=== PATIENT | male | born 1970 | race Caucasian/White ===

== ENCOUNTER 2016-08-31 16:57 | Emergency (ER) | payer SELFPAY ==
[~2016-08-31] VITALS: Ht 165.1 cm; Wt 72.0 kg
[~2016-08-31 16:57] MED LIST: HYDR-3533 PO; VENTAER INH
[2016-08-31 17:03] VITALS: BP 141/91; PULSE 60; RESP 16; TEMP 98; O2SAT 98
--- NOTE | 2016-08-31 17:38 | PD ---
HPI Chief Complaint: Injury Time Seen by Provider: 17:38 Travel History International Travel<30 days: No Contact w/Intl Traveler<30days: No Traveled to known affect area: No History of Present Illness HPI 46-year-old male with history of left wrist fracture in April 2016, presents to the emergency department for evaluation of reinjuring the left wrist. Patient states he can fell landing on a low outstretched left upper extremity. He experienced immediate pain but noticed it beginning to swell. He went to Dr. Ward'S office but was told he would not be able to see him today. He came to the emergency department for further evaluation. He did not hit his head or lose consciousness. Denies any alterations in sensation. Pain is a constant 8 out of 10, exacerbated by movement. No other symptoms to report. PFSH Past Medical History Arthritis: Yes Asthma: Yes Anxiety: Yes Cancer: No Cardiovascular Problems: No High Cholesterol: Yes Diminished Hearing: No Gastrointestinal Disorders: Yes GERD: Yes Genitourinary: Yes Headaches: Yes Hypertension: Yes Immune Disorder: No Implanted Vascular Access Dvce: Yes Kidney Stones: Yes Musculoskeletal: Yes Neurologic: Yes Psychiatric: Yes Respiratory: Yes (ASTHMA) Immunizations Current: Yes Thyroid Disease: Yes Past Surgical History Abdominal Surgery: No Appendectomy: Yes Body Medical Devices: PINS Joint Replacement: Yes (RIGHT HIP) Tonsillectomy: Yes Social History Alcohol Use: No Tobacco Use: Yes (1PACK EVERY 3 DAYS) Substance Use: No Allergies-Medications (Allergen,Severity, Reaction): Coded Allergies: Codeine (Verified Allergy, Severe, HIVES, N/V, 08/31/16) Darvocet-N 100 (Verified Allergy, Severe, HIVES WITH N&V, 08/31/16) Penicillin (Verified Allergy, Severe, ANAPHALAXIS, 08/31/16) Reported Meds & Prescriptions Reported Meds & Active Scripts Active Reported Lortab (Hydrocodone-Acetaminophen) 5-325 Mg Tab 1 Tab PO Q6H PRN Ventolin Hfa 18 GM Inh (Albuterol Sulfate) 90 Mcg/Act Aer 2 Puff INH Q4H PRN Review of Systems Except as stated in HPI: all other systems reviewed are Neg Physical Exam Narrative GENERAL: Well-nourished, well-developed patient, ambulatory and in no acute distress SKIN: Warm and dry. HEAD: Normocephalic. EYES: No scleral icterus. No injection or drainage. NECK: Supple, trachea midline. No JVD or lymphadenopathy. CARDIOVASCULAR: Regular rate and rhythm without murmurs, gallops, or rubs. RESPIRATORY: Breath sounds equal bilaterally. No accessory muscle use. EXTREMITY: There is swelling and tenderness of the left distal forearm and wrist. There is NO obvious deformity. The skin is intact. Flexion and extension of the fingers is normal. The fingers are warm and well perfused. Sensation to light touch is intact in the hand. Data Data Last Documented VS Vital Signs Date Time Temp Pulse Resp B/P Pulse Ox O2 Delivery O2 Flow Rate FiO2 08/31/16 17:03 98.0 60 16 141/91 98 Room Air Orders Wrist, Complete ([id number]) (08/31/16 ) [facility] Medical Decision Making Medical Screen Exam Complete: Yes Emergency Medical Condition: Yes Medical Record Reviewed: Yes Differential Diagnosis Fracture versus sprain versus contusion versus dislocation Narrative Course 46-year-old male presents to the emergency department for evaluation left wrist injury. X-ray imaging is complete. As stated for acute bony abnormality. Patient will be provided a Velcro wrist splint. Advised to follow-up with his industrial relations specialist. He agrees to return immediately with any acute worsening of symptoms. Diagnosis Primary Impression: Left wrist injury Qualified Code: S69.92XA - Left wrist injury, initial encounter Referrals: Orthopaedic Surgeon Primary Care Physician Patient Instructions: General Instructions, Wrist Injury (DC) Additional Instructions: Brace for support Ice and elevate to reduce pain and swelling Follow-up the primary care provider Return immediately to the emergency department with any acute worsening of symptoms. Med/Other Pt SpecificInfo: Prescription(s) given Scripts Ibuprofen 600 Mg [id number] Mg PO Q8HR PRN (PAIN) #30 TAB Ref 0 Prov:Leticia Herzog 08/31/16 Disposition: 01 DISCHARGE HOME Condition: Stable Leticia Herzog Aug 31, 2016 17:38
--- NOTE | 2016-08-31 18:07 | RADRPT ---
EXAM DATE/TIME: 08/31/2016 17:36 [facility] COMPARISON: No previous studies available for comparison. INDICATIONS : Left wrist pain after fall. MEDICAL HISTORY : Previous injury in left wrist April 2016. SURGICAL HISTORY : None. ENCOUNTER: Initial ACUITY: 2 days PAIN SCORE: 10/10 LOCATION: Left lateral wrist. FINDINGS: Three view examination of the left wrist demonstrates no soft tissue swelling, dislocation, or fractu re. The carpal bones are in normal alignment. The joint spaces are maintained. Bony mineralization is normal. CONCLUSION: Intact left wrist. Tony Mercer MD on August 31, 2016 at 18:04 Board Certified Radiologist. This report was verified electronically.
[2016-08-31] MEDS ORDERED: IBUP-232 PO (18:12)
== END 2016-08-31 18:20 | disposition home or self-care (01) ==
LOC: NEPB 16:57
DX: S69.92XA Unspecified injury of left wrist, hand and finger(s), initial encounter (principal); I10 Essential (primary) hypertension; E07.9 Disorder of thyroid, unspecified; E78.00 Pure hypercholesterolemia, unspecified; Z72.0 Tobacco use; Z87.39 Personal history of other diseases of the musculoskeletal system and connective tissue; Z87.09 Personal history of other diseases of the respiratory system; Z86.59 Personal history of other mental and behavioral disorders; Z87.19 Personal history of other diseases of the digestive system; Z87.448 Personal history of other diseases of urinary system; Z86.69 Personal history of other diseases of the nervous system and sense organs; W19.XXXA Unspecified fall, initial encounter
CPT/HCPCS: 73110; 99283; L3908

== ENCOUNTER 2017-02-15 01:34 | Emergency (ER) | payer SELFPAY ==
[~2017-02-15] VITALS: Ht 162.6 cm; Wt 62.0 kg
[~2017-02-15 01:34] MED LIST changes: +IBUP-232 PO
[2017-02-15 01:35] VITALS: BP 190/102; PULSE 84; RESP 16; TEMP 97.9; O2SAT 99
[2017-02-15 01:53] VITALS: BP 170/95
[2017-02-15] MEDS ORDERED: KETOROLAC TROMETHAMINE 60 MG/2 ML (IM) VIAL IM ONE (02:30)
--- NOTE | 2017-02-15 02:32 | PD ---
HPI Chief Complaint: Injury Time Seen by Provider: 02:25 Travel History International Travel<30 days: No Contact w/Intl Traveler<30days: No Traveled to known affect area: No History of Present Illness HPI 46-year-old male here with left forearm pain. At 7 PM this evening he was helping a friend while the friend was trimming a palm tree. A piece of the palm tree branch fell and hit him on the left forearm. He now has forearm pain and bruising. He did have a small puncture wound which initially was bleeding but resolved. He does not believe that any of the thorns broke off underneath the skin. Last tetanus vaccination within 5 years. No other complaints. PFSH Past Medical History Arthritis: Yes Asthma: Yes Anxiety: Yes Cancer: No Cardiovascular Problems: No High Cholesterol: Yes Diminished Hearing: No Gastrointestinal Disorders: Yes GERD: Yes Genitourinary: Yes Headaches: Yes Hypertension: Yes Immune Disorder: No Implanted Vascular Access Dvce: Yes Kidney Stones: Yes Musculoskeletal: Yes Neurologic: Yes Psychiatric: Yes Respiratory: Yes (ASTHMA) Immunizations Current: Yes Thyroid Disease: Yes ?: Not Past Surgical History Abdominal Surgery: No Appendectomy: Yes Body Medical Devices: PINS Joint Replacement: Yes (RIGHT HIP) Tonsillectomy: Yes Family History Family Myocardial Infarction: Yes Social History Alcohol Use: No Tobacco Use: Yes (1PACK EVERY 3 DAYS) Substance Use: No Allergies-Medications (Allergen,Severity, Reaction): Coded Allergies: acetaminophen (Unverified Allergy, Severe, HIVES WITH N&V, 02/07/17) codeine (Unverified Allergy, Severe, HIVES, N/V, 02/07/17) penicillin G (Unverified Allergy, Severe, ANAPHALAXIS, 02/07/17) propoxyphene (Unverified Allergy, Severe, HIVES WITH N&V, 02/07/17) Reported Meds & Prescriptions Reported Meds & Active Scripts Active Ibuprofen 800 Mg Tab 800 Mg PO Q6HR PRN Doxycycline Hyclate 100 Mg Cap 100 Mg PO BID 5 Days Review of Systems Except as stated in HPI: all other systems reviewed are Neg Physical Exam Narrative GENERAL: Well-developed well-nourished male in no acute distress SKIN: Warm and dry. There is no area of ecchymosis to the dorsal distal left forearm. There is a tiny puncture wound which is not bleeding. Generalized tenderness to palpation. HEAD: Atraumatic. Normocephalic. EYES: Pupils equal and round. No scleral icterus. No injection or drainage. ENT: No nasal bleeding or discharge. Mucous membranes pink and moist. NECK: Trachea midline. No JVD. CARDIOVASCULAR: Regular rate and rhythm. No murmur appreciated. RESPIRATORY: No accessory muscle use. Clear to auscultation. Breath sounds equal bilaterally. MUSCULOSKELETAL: Skin as noted above no obvious bony deformity or foreign body. The patient has pain with flexion and extension of the left wrist. Distal sensation, pulses preserved. Data Data Last Documented VS Vital Signs Date Time Temp Pulse Resp B/P (MAP) Pulse Ox O2 Delivery O2 Flow Rate FiO2 02/15/17 01:53 170/95 (120) 02/15/17 01:35 97.9 84 16 99 Orders Orders Forearm (2vws) (02/15/17 ) Ketorolac Inj (Toradol Inj) (02/15/17 02:30) Doxycycline (Vibramycin) (02/15/17 03:30) MDM Medical Decision Making Medical Screen Exam Complete: Yes Emergency Medical Condition: Yes Medical Record Reviewed: Yes Differential Diagnosis Contusion, puncture wound, foreign body, fracture Narrative Course X-ray imaging reveals no acute abnormalities. He appears to have a contusion and a small puncture wound. He is stable for discharge. Diagnosis Primary Impression: Contusion Qualified Codes: S50.12XA - Contusion of left forearm, initial encounter Additional Impression: Puncture wound Additional Instructions: Medication as prescribed. Keep the wound clean. Ice pack several times a day 20 minutes at a time. Med/Other Pt SpecificInfo: Prescription(s) given Scripts Ibuprofen (Ibuprofen) 800 Mg Tab 800 MG PO Q6HR Y for PAIN, #40 TAB 0 Refills Prov: Olga Farrell DO 02/15/17 Doxycycline Hyclate (Doxycycline Hyclate) 100 Mg Cap 100 MG PO BID for Infection for 5 Days, CAP 0 Refills Prov: Olga Farrell DO 02/15/17 Disposition: 01 DISCHARGE HOME Condition: Stable Torsten Solorzano Feb 15, 2017 02:31
--- NOTE | 2017-02-15 03:11 | RADRPT ---
EXAM DATE/TIME: 02/15/2017 02:26 [facility] COMPARISON: No previous studies available for comparison. INDICATIONS : Left arm pain. MEDICAL HISTORY : None. SURGICAL HISTORY : None. ENCOUNTER: Initial ACUITY: 1 day PAIN SCORE: 5/10 LOCATION: Left FINDINGS: Two view examination of the left forearm demonstrates no evidence of fracture or dislocation. Bony m ineralization is normal. The soft tissue structures are intact. CONCLUSION: 1. No acute findings. Enoc Caceres MD on February 15, 2017 at 3:09 Board Certified Radiologist. This report was verified electronically.
[2017-02-15] MEDS ORDERED: IBUP800T23 PO (03:21)
[2017-02-15] MEDS ORDERED: DOXY100C PO (03:21)
[2017-02-15] MEDS ORDERED: traMADol HCL 50 MG TAB PO ONE (03:30)
[2017-02-15] MEDS ORDERED: DOXYCYCLINE HYCLATE 100 MG CAP PO ONE (03:30)
== END 2017-02-15 03:31 | disposition home or self-care (01) ==
LOC: NEPD 01:34
DX: S50.12XA Contusion of left forearm, initial encounter (principal); W20.8XXA Other cause of strike by thrown, projected or falling object, initial encounter; Y93.H2 Activity, gardening and landscaping
CPT/HCPCS: 73090; 96372; 99284; J1885

== ENCOUNTER 2017-02-27 23:39 | Emergency (ER) | payer SELFPAY ==
[~2017-02-27] VITALS: Ht 162.6 cm; Wt 63.5 kg
[~2017-02-27 23:39] MED LIST changes: +DOXY100C PO; -HYDR-3533 PO; -IBUP-232 PO; +IBUP800T23 PO; -VENTAER INH
[2017-02-27 23:41] VITALS: BP 137/100; PULSE 95; RESP 18; TEMP 98.3; O2SAT 98
--- NOTE | 2017-02-27 23:58 | PD ---
HPI Chief Complaint: Fall Time Seen by Provider: 23:46 Travel History International Travel<30 days: No Contact w/Intl Traveler<30days: No History of Present Illness HPI Patient is a 46-year-old male presenting for evaluation of sacral pain after falling approximately 10:30 PM this evening. Patient states he lost his footing and fell back onto a plastic storage container on his porch. After he fell onto the container he then slid to the floor. Patient states the pain is a 10 out of 10, he states he cannot sit on his buttocks because this exacerbates the pain. He states it's throbbing and aching and sore. He denies any numbness or weakness in his lower extremities, no bladder or bowel incontinence, no saddle anesthesia. Patient is taken anything to alleviate the pain prior to arrival. PFSH Past Medical History Arthritis: Yes Asthma: Yes Anxiety: Yes Cancer: No Cardiovascular Problems: No High Cholesterol: Yes Diminished Hearing: No Gastrointestinal Disorders: Yes GERD: Yes Genitourinary: Yes Headaches: Yes Hypertension: Yes Immune Disorder: No Implanted Vascular Access Dvce: Yes Kidney Stones: Yes Musculoskeletal: Yes Neurologic: Yes Psychiatric: Yes Respiratory: Yes (ASTHMA) Immunizations Current: Yes Thyroid Disease: Yes Tetanus Vaccination: < 5 Years Influenza Vaccination: No Past Surgical History Abdominal Surgery: No Appendectomy: Yes Body Medical Devices: PINS Joint Replacement: Yes (RIGHT HIP) Tonsillectomy: Yes Family History Family Myocardial Infarction: Yes Social History Alcohol Use: No Tobacco Use: Yes (1PACK EVERY 3 DAYS) Substance Use: No Allergies-Medications (Allergen,Severity, Reaction): Coded Allergies: acetaminophen (Unverified Allergy, Severe, HIVES WITH N&V, 02/07/17) codeine (Unverified Allergy, Severe, HIVES, N/V, 02/07/17) penicillin G (Unverified Allergy, Severe, ANAPHALAXIS, 02/07/17) propoxyphene (Unverified Allergy, Severe, HIVES WITH N&V, 02/07/17) Reported Meds & Prescriptions Reported Meds & Active Scripts Active Ibuprofen 800 Mg Tab 800 Mg PO Q6HR PRN Doxycycline Hyclate 100 Mg Cap 100 Mg PO BID 5 Days Review of Systems Except as stated in HPI: all other systems reviewed are Neg Musculoskeletal: Positive: Pain Neurologic: No: Weakness, Sensory Disturbance Physical Exam Narrative GENERAL: Well-developed, well-nourished, alert male. Appears uncomfortable, in no acute distress. SKIN: Warm and dry. HEAD: Atraumatic. Normocephalic. EYES: Pupils equal and round. No scleral icterus. No injection or drainage. ENT: No nasal bleeding or discharge. Mucous membranes pink and moist. NECK: Trachea midline. No JVD. CARDIOVASCULAR: Regular rate and rhythm. RESPIRATORY: No accessory muscle use. Clear to auscultation. Breath sounds equal bilaterally. GASTROINTESTINAL: Abdomen soft, non-tender, nondistended. Hepatic and splenic margins not palpable. MUSCULOSKELETAL: Extremities without clubbing, cyanosis, or edema. No obvious deformities. Tenderness to palpation over sacrum and coccyx. No obvious deformities noted, no erythema or ecchymosis. NEUROLOGICAL: Awake and alert. No obvious cranial nerve deficits. Motor grossly within normal limits. Five out of 5 muscle strength in the arms and legs. Normal speech. PSYCHIATRIC: Appropriate mood and affect; insight and judgment normal. Data Data Last Documented VS Vital Signs Date Time Temp Pulse Resp B/P (MAP) Pulse Ox O2 Delivery O2 Flow Rate FiO2 02/27/17 23:41 98.3 95 18 137/100 (112) 98 Orders Orders Spine, Lumbar - Ltd (Ap & Lat) (02/27/17 ) Sacrum And Coccyx (02/27/17 ) Orphenadrine Inj (Norflex Inj) (02/28/17 00:00) Ketorolac Inj (Toradol Inj) (02/28/17 00:00) Psych Screen (02/27/17 23:52) MDM Medical Decision Making Medical Screen Exam Complete: Yes Emergency Medical Condition: Yes Interpretation(s) Vital Signs Date Time Temp Pulse Resp B/P (MAP) Pulse Ox O2 Delivery O2 Flow Rate FiO2 02/27/17 23:41 98.3 95 18 137/100 (112) 98 Differential Diagnosis Fracture versus sprain versus strain versus contusion versus other Narrative Course Patient is a 46-year-old male presenting for evaluation of sacral pain after falling this evening. He is neurovascularly and neurologically intact. Imaging ordered and pending. Patient's vital signs are stable. Toradol and Norflex ordered for pain. X-ray of the lumbar spine and sacrum are negative for acute abnormalities. Patient will be discharged home. He is encouraged to apply warm moist heat to affected area, take medications as directed. Use doughnut cushion/pillow when seated to help alleviate pain and pressure on tailbone. Patient is encouraged to return to emergency department for any new or worsening symptoms. He is encouraged follow-up with his primary doctor. Patient verbalized understanding of instructions. Patient is stable for discharge. Diagnosis Primary Impression: Acute coccygeal pain Referrals: Primary Care Physician 3 days Patient Instructions: Coccyx Injury (ED), General Instructions Additional Instructions: Follow-up with your primary doctor Take medications as directed Apply warm moist heat to affected area Use doughnut cushion/pillow when seated to help alleviate pain and pressure on tailbone Return to emergency department for any new or worsening symptoms Med/Other Pt SpecificInfo: Prescription(s) given Scripts Cyclobenzaprine (Flexeril) 10 Mg Tab 10 MG PO TID Y for MUSCLE SPASM for 7 Days, #90 TAB 0 Refills Prov: Amy Anaya 02/28/17 Ibuprofen (Ibuprofen) 800 Mg Tab 800 MG PO Q6HR Y for PAIN, #40 TAB 0 Refills Prov: Amy Anaya 02/28/17 Disposition: 01 DISCHARGE HOME Condition: Stable Amy Anaya Feb 27, 2017 23:58
[2017-02-28] MEDS ORDERED: ORPHENADRINE INJ 60 MG/2 ML AMP IM ONE
[2017-02-28] MEDS ORDERED: KETOROLAC TROMETHAMINE 60 MG/2 ML (IM) VIAL IM ONE
--- NOTE | 2017-02-28 00:33 | RADRPT ---
EXAM DATE/TIME: 02/28/2017 00:04 [facility] COMPARISON: No previous studies available for comparison. INDICATIONS : Fall down steps. Low back pain. MEDICAL HISTORY : None. SURGICAL HISTORY : None. ENCOUNTER: Initial ACUITY: 1 day PAIN SCORE: 8/10 LOCATION: Bilateral Paraspinal FINDINGS: Two view examination was performed. There are five non-rib bearing vertebral bodies. The vertebral bodies are in normal alignment without evidence of subluxation or scoliosis. There is mild disc space narrowing at L4-5 and associated facet arthropathy. The pedicles are intact. Bony mineralization is normal. No fracture is identified. CONCLUSION: 1. No acute fracture or subluxation. 2. Mild degenerative spondylosis of the lower lumbar spine. Juan Manuel Duarte MD on February 28, 2017 at 0:30 Board Certified Radiologist. This report was verified electronically.
--- NOTE | 2017-02-28 00:34 | RADRPT ---
EXAM DATE/TIME: 02/28/2017 00:05 [facility] COMPARISON: No previous studies available for comparison. INDICATIONS : Fall. Low back pain through sacrum. MEDICAL HISTORY : None. SURGICAL HISTORY : None. ENCOUNTER: Initial ACUITY: 1 day PAIN SCORE: 8/10 LOCATION: Bilateral Paraspinal FINDINGS: Two-view examination of the sacrum and coccyx demonstrates no evidence of fracture or malalignment. The sacral ala and foramina appear symmetric and intact. The coccyx appears unremarkable. The preve rtebral soft tissues are within normal limits. CONCLUSION: 1. No acute fracture or dislocation. Juan Manuel Duarte MD on February 28, 2017 at 0:31 Board Certified Radiologist. This report was verified electronically.
[2017-02-28] MEDS ORDERED: IBUP800T23 PO (00:50)
[2017-02-28] MEDS ORDERED: CYCL1TAB29 PO (00:50)
== END 2017-02-28 01:15 | disposition home or self-care (01) ==
LOC: NEPD 23:39
DX: S39.92XA Unspecified injury of lower back, initial encounter (principal); W19.XXXA Unspecified fall, initial encounter; Y92.008 Other place in unspecified non-institutional (private) residence as the place of occurrence of the external cause
CPT/HCPCS: 72100; 72220; 96372; 99284; J1885; J2360

== ENCOUNTER 2018-05-13 04:12 | Observation (INO) ==
[2018-05-13] MEDS ORDERED: Pantoprazole Inj 40 MG Vial IV.PUSH ONE (05:03)
[2018-05-13] MEDS ORDERED: Ketorolac Inj 30 MG/ML (IVP) Vial IV.PUSH ONE (05:03)
[2018-05-13 05:21] LABS: Baso # (Auto) 0.1 th/mm3 (0.0-0.2); Eos # (Auto) 0.2 th/mm3 (0.0-0.4); Eos % (Auto) 2.6 % (0.0-4.0); Hemoglobin 13.1 gm/dL (13.0-17.0); Lymph # (Auto) 1.3 th/mm3 (1.0-4.8); Lymph % (Auto) 16.8 % (9.0-44.0); Mean Corpuscular HGB Conc 33.5 % (32.0-36.0); Mean Corpuscular Hemoglobin 28.5 pg (27.0-34.0); Mean Corpuscular Volume 85.1 fL (80.0-100.0); Mean Platelet Volume 10.9 fL (7.0-11.0); Mono # (Auto) 1.1 th/mm3 (0.0-0.9); Mono % (Auto) 14.1 % (0.0-8.0); Neut # (Auto) 5.1 th/mm3 (1.8-7.7); Neut % (Auto) 65.5 % (16.0-70.0); Platelet Count 186 th/mm3 (150-450); Red Blood Count 4.58 mil/mm3 (4.50-5.90); Red Cell Distribution Width 13.3 % (11.6-17.2); White Blood Count 7.7 th/mm3 (4.0-11.0)
[2018-05-13 05:37] LABS: Alanine Aminotransferase 20 U/L (12-78); Albumin 3.1 g/dL (3.4-5.0); Anion Gap 8 meq/L (5-15); Aspartate Aminotransferase 18 U/L (15-37); Blood Urea Nitrogen 13 mg/dL (7-18); Calcium 8.1 mg/dL (8.5-10.1); Chloride 106 meq/L (98-107); Glomerular Filtration Rate 83 mL/min (>89); Glucose,Random 140 mg/dL (74-106); Lipase 45 U/L (73-393); Magnesium 1.9 mg/dL (1.5-2.5); Potassium 3.2 meq/L (3.5-5.1); Sodium 140 meq/L (136-145)
[2018-05-13 05:41] LABS: Alkaline Phosphatase 71 U/L (45-117); Total Protein 7.3 g/dL (6.4-8.2)
--- NOTE | 2018-05-13 06:27 | ED ---
HPI General Chief Complaint: Abdominal Pain Stated Complaint: abd pain Time Seen by Provider: 05/13/18 04:55 Source: patient Mode of arrival: ambulatory Limitations: no limitations History of Present Illness HPI narrative: 48-year-old male came to the emergency room with significant epigastric pain that as per him has been going on for past 6 hours. Patient says the pain feels like severe sharp pain without any radiation. No aggravating or relieving factors identified. Patient says that his pain feels like when he had appendicitis. No history of nausea or vomiting. He has significant family history of coronary artery disease. Patient is a smoker. Patient has history of asthma. No history of hypertension or diabetes otherwise. Related Data Home Medications Medication Instructions Recorded Confirmed albuterol sulfate 2 puff INHALATION Q4-6H PRN 05/13/18 05/17/18 Previous Rx's Medication Instructions Recorded alum-mag hydroxide-simeth [Mag-Al 30 ml PO Q6H PRN #300 ml 05/14/18 Plus] calcium carbonate 500 mg CHEW Q6H PRN #120 tab 05/14/18 pantoprazole 40 mg PO DAILY #30 tab 05/14/18 omeprazole 20 mg PO DAILY 15 Days #15 cap 05/17/18 Allergies Allergy/AdvReac Type Severity Reaction Status Date / Time acetaminophen Allergy Severe HIVES WITH Verified 05/17/18 17:04 N&V codeine Allergy Severe HIVES, N/V Verified 05/17/18 17:04 penicillin G Allergy Severe ANAPHALAXIS Verified 05/17/18 17:04 propoxyphene Allergy Severe HIVES WITH Verified 05/17/18 17:04 N&V Review of Systems ROS: all other systems reviewed are negative [facility] Medical History Medical History Asthma (Acute) Surgical History Surgical History History of appendectomy (Acute) History of hip surgery (Acute) Social History Social History Substance History: No History of Abuse Second Hand Smoke Exposure: Yes Smoking Status: Light tobacco smoker Tobacco Type: Cigarettes How Often Do You Have a Drink Containing Alcohol: 2 to 4 times a month Hx Recent Travel: No Recent Travel in [facility] within the Last 8 Weeks: No Recent Out of Country Travel within the Last 8 Weeks: No Immunization History Tetanus Immunization: <5 Years Exam Narrative Exam Narrative: GENERAL: Awake, alert, anxious, significant distress SKIN: Focused skin assessment warm/dry. HEAD: Atraumatic. Normocephalic. EYES: Pupils equal and round. No scleral icterus. No injection or drainage. ENT: No nasal bleeding or discharge. Mucous membranes pink and moist. NECK: Trachea midline. No JVD. CARDIOVASCULAR: Regular rate and rhythm. No murmur appreciated. RESPIRATORY: No accessory muscle use. Clear to auscultation. Breath sounds equal bilaterally. GASTROINTESTINAL: Abdomen soft, non-tender, nondistended. Hepatic and splenic margins not palpable. MUSCULOSKELETAL: No obvious deformities. No clubbing. No cyanosis. No edema. NEUROLOGICAL: Awake and alert. No obvious cranial nerve deficits. Motor grossly within normal limits. Normal speech. PSYCHIATRIC: Appropriate mood and affect; insight and judgment normal. Course Initial Documented Vital Signs Temperature 98.0 F 05/13/18 04:15 Pulse Rate 79 05/13/18 04:15 Respiratory Rate 20 05/13/18 04:15 Blood Pressure 199/102 H 05/13/18 04:15 Pulse Oximetry 98 05/13/18 04:15 Last Documented Vital Signs Temperature 97.9 F 05/14/18 12:00 Pulse Rate 54 L 05/14/18 12:00 Respiratory Rate 16 05/14/18 12:00 Blood Pressure 133/85 05/14/18 12:00 Pulse Oximetry 97 05/14/18 12:00 Medical Decision Making [facility] Narrative Medical decision making narrative: 6:26 AM blood test results are back and within acceptable limits. Potassium was slightly low and I have ordered for p.o. replacement. Patient was given IV Toradol and IV Protonix. Awaiting for the CAT scan to be resulted. If the CT is within normal limits and patient will be admitted to the chest pain center given the risk factors. I looked into his past medical history and his last stress test was in 2015 and was read as submaximal stress test. 7:[address] scan is normal. I will admit him to the chest pain center. Medical Screen Exam Complete: Yes Emergency Medical Condition: Yes Lab Data Result diagrams: 05/13/18 05:03 11/18/18 05:03 Lab Results 05/13/18 05/13/18 05/13/18 Range/Units 05:03 05:03 08:30 WBC 7.7 (4.0-11.0) th/mm3 RBC 4.58 (4.50-5.90) mil/mm3 Hgb 13.1 (13.0-17.0) gm/dL Hct 39.0 (39.0-51.0) % MCV 85.1 (80.0-100.0) fL MCH 28.5 (27.0-34.0) pg MCHC 33.5 (32.0-36.0) % RDW 13.3 (11.6-17.2) % Plt Count 186 (150-450) th/mm3 MPV 10.9 (7.0-11.0) fL Neut % (Auto) 65.5 (16.0-70.0) % Lymph % (Auto) 16.8 (9.0-44.0) % [place] % (Auto) 14.1 H (0.0-8.0) % Eos % (Auto) 2.6 (0.0-4.0) % Baso % (Auto) 1.0 (0.0-2.0) % Neut # (Auto) 5.1 (1.8-7.7) th/mm3 Lymph # (Auto) 1.3 (1.0-4.8) th/mm3 [place] # (Auto) 1.1 H (0.0-0.9) th/mm3 Eos # (Auto) 0.2 (0.0-0.4) th/mm3 Baso # (Auto) 0.1 (0.0-0.2) th/mm3 WBC Differential . Differential Comment Auto diff final Sodium 140 (136-145) meq/L Potassium 3.2 L (3.5-5.1) meq/L Chloride 106 (98-107) meq/L Carbon Dioxide 26.0 (21.0-32.0) meq/L Anion Gap 8 (5-15) meq/L BUN 13 (7-18) mg/dL Creatinine 0.96 (0.60-1.30) mg/dL Estimated GFR 83 L (>89) mL/min Random Glucose 140 H (74-106) mg/dL Calcium 8.1 L (8.5-10.1) mg/dL Magnesium 1.9 (1.5-2.5) mg/dL Total Bilirubin 0.3 (0.2-1.0) mg/dL AST 18 (15-37) U/L ALT 20 (12-78) U/L Alkaline Phosphatase 71 (45-117) U/L Total Creatine Kinase 97 (39-308) U/L Troponin I Less than 0.02 L Less than 0.02 L (0.02-0.05) ng/mL Total Protein 7.3 (6.4-8.2) g/dL Albumin 3.1 L (3.4-5.0) g/dL Lipase 45 L (73-393) U/L Urine Color (Yellw/Straw) Urine Clarity (Clear) Urine pH (5.0-8.5) Ur Specific Hilbert (1.002-1.035) Urine Protein (Neg-Trace) mg/dL Urine Glucose (UA) (Negative) mg/dL Urine Ketones (Negative) mg/dL Urine Occult Blood (Negative) Urine Nitrate (Negative) Urine Bilirubin (Negative) Urine Urobilinogen (Less than 2) mg/dL Ur Leukocyte Esterase (Negative) Urine RBC (0-3) /hpf Urine WBC (0-5) /hpf Urine Mucus (Occasional) /lpf Micro UA Comment Ur Microscopic Review Urine Culture Comments 05/13/18 05/13/18 Range/Units 12:00 13:15 WBC (4.0-11.0) th/mm3 RBC (4.50-5.90) mil/mm3 Hgb (13.0-17.0) gm/dL Hct (39.0-51.0) % MCV (80.0-100.0) fL MCH (27.0-34.0) pg MCHC (32.0-36.0) % RDW (11.6-17.2) % Plt Count (150-450) th/mm3 MPV (7.0-11.0) fL Neut % (Auto) (16.0-70.0) % Lymph % (Auto) (9.0-44.0) % [place] % (Auto) (0.0-8.0) % Eos % (Auto) (0.0-4.0) % Baso % (Auto) (0.0-2.0) % Neut # (Auto) (1.8-7.7) th/mm3 Lymph # (Auto) (1.0-4.8) th/mm3 [place] # (Auto) (0.0-0.9) th/mm3 Eos # (Auto) (0.0-0.4) th/mm3 Baso # (Auto) (0.0-0.2) th/mm3 WBC Differential Differential Comment Sodium (136-145) meq/L Potassium (3.5-5.1) meq/L Chloride (98-107) meq/L Carbon Dioxide (21.0-32.0) meq/L Anion Gap (5-15) meq/L BUN (7-18) mg/dL Creatinine (0.60-1.30) mg/dL Estimated GFR (>89) mL/min Random Glucose (74-106) mg/dL Calcium (8.5-10.1) mg/dL Magnesium (1.5-2.5) mg/dL Total Bilirubin (0.2-1.0) mg/dL AST (15-37) U/L ALT (12-78) U/L Alkaline Phosphatase (45-117) U/L Total Creatine Kinase 64 (39-308) U/L Troponin I Less than 0.02 L (0.02-0.05) ng/mL Total Protein (6.4-8.2) g/dL Albumin (3.4-5.0) g/dL Lipase (73-393) U/L Urine Color Yellow (Yellw/Straw) Urine Clarity Clear (Clear) Urine pH 6.0 (5.0-8.5) Ur Specific Hilbert 1.018 (1.002-1.035) Urine Protein Negative (Neg-Trace) mg/dL Urine Glucose (UA) Negative (Negative) mg/dL Urine Ketones Negative (Negative) mg/dL Urine Occult Blood Negative (Negative) Urine Nitrate Negative (Negative) Urine Bilirubin Negative (Negative) Urine Urobilinogen Less than 2 (Less than 2) mg/dL Ur Leukocyte Esterase Negative (Negative) Urine RBC Less than 1 (0-3) /hpf Urine WBC Less than 1 (0-5) /hpf Urine Mucus Few H (Occasional) /lpf Micro UA Comment Culture not ind Ur Microscopic Review Not Reportable Urine Culture Comments Culture not ind Imaging Data Radiologist's impression: Myocardial Perfusion Scan Nuc Med 05/13/18 00:00 CONCLUSION: 1. Negative examination. Abdomen/Pelvis CT 05/13/18 05:03 CONCLUSION: 1. Stable exam of the abdomen and pelvis. No evidence of free fluid mass or bowel obstruction. 2. Chronic changes at the T10-11 disc space level. No etiology for right-sided abdominal pain identified. Right renal cyst is stable. ECG Data Attestation: I personally reviewed and interpreted this ECG as follows: Interpretation: Twelve-lead EKG was reviewed by me. Normal sinus rhythm, normal axis, nonspecific ST-T wave changes. Heart rate of 69 bpm. Discharge Plan Discharge Disposition Patient Disposition: 30 Still Patient Discharge Condition Condition: Stable Discharge Order Discharge Orders: Discharge Order (Routine); Ordered 05/14/18 Ordered By: Segundo Go Discharge Details Discharge Comment: dc if diet tolerated Physicians Team ED Provider: Brigido Hawkins Primary Care Provider: Primary Care Radha,Genna Attending Provider: Segundo Go Other Providers: Mala Morris Status ED Status: Left Department Discharge Information Discharge Date/Time: 05/13/18 08:54
--- NOTE | 2018-05-13 06:31 | CT ---
EXAM DATE: 05/13/2018 5:36 AM EST AGE/SEX: 48 years / Male INDICATIONS: Right sided abdominal pain since last night. CLINICAL DATA: This is the patient's initial encounter. Patient reports that signs and symptoms have been present for 1 day and indicates a pain score of 7/10. MEDICAL/SURGICAL HISTORY: Asthma. Appendectomy. Hip surgery RADIATION DOSE: 7.44 CTDI (mGy) [place] [facility] [place] 10/31/2015. . TECHNIQUE: Multiple contiguous axial images were obtained through the abdomen. Images were obtained using multiple row detector helical technique. Using automated exposure control and adjustment of the mA and/or kV according to patient size, radiation dose was kept as low as reasonably achievable to o btain optimal diagnostic quality images. DICOM format image data is available electronically for rev iew and comparison. FINDINGS: Lower Lungs: The visualized lower lungs are clear. Liver: The liver has a homogeneous density without space-occupying lesion. There is no dilation of th e biliary tree. Spleen: Homogeneous density without enlargement. Pancreas: Unremarkable without mass or calcification. Kidneys: Normal in size and shape. No evidence of mass or hydronephrosis except stable right renal c yst. Adrenal Glands: Unremarkable. Aorta: The aorta and proximal iliac vessels are grossly unremarkable without aneurysmal dilation. Bowel/Mesentery: The bowel loops are grossly unremarkable. The cecum and sigmoid colon have a normal configuration. Suture consistent with appendectomy Abdominal Wall: Intact. Retroperitoneum: No evidence of adenopathy in the retrocrural, para-aortic, or deep pelvic regions. Bladder: Contours are smooth. Reproductive Organs: No abnormal masses or calcifications seen. Inguinal: The inguinal region is unremarkable without evidence of adenopathy. Bony Structures: Unremarkable. Right-sided hip hardware has been removed. There is discogenic destru ctive change I suspect on a chronic basis around the T10-11 disc space level. CONCLUSION: 1. Stable exam of the abdomen and pelvis. No evidence of free fluid mass or bowel obstruction. 2. Chronic changes at the T10-11 disc space level. No etiology for right-sided abdominal pain identi fied. Right renal cyst is stable. Electronically signed by: Jordy Santillan MD 05/13/2018 6:30 AM EST
[2018-05-13 09:18] LABS: Creatine Kinase 97 U/L (39-308)
--- NOTE | 2018-05-13 09:29 | P.HPCA ---
History of Present Illness Primary Care Physician: No Primary Care Physician Chief Complaint: Epigastric pain History of Present Illness: 48 year old male with history of GERD and current smoker presents to ER for further evaluation of epigastric pain. Onset 630PM. Characterized stabbing. Quick onset. Intermittent radiation to left anterior chest, describes as "shooting diagonal pain." Severe in severity. Made worse with inspiration. No associated nausea, vomiting, dyspnea, or diaphoresis. Laying on right side makes pain worse. No relieving factors. Last meal 2-3 hours prior to onset. Denies similar discomfort in the past. History of GERD, often required taking multiple Tums for relief. Unclear why he quit taking PPI. Returned to [facility] from [place] and currently does not have a PCP. No recent illness, fever, weight lost, or injury. Last bowel movement 05/12/18, no changes in bowel habits or appetite. Past cardiac history David ETT-ambulated 7:55 minutes, suboptimal test, did not meet target heart rate Social history No known hypertension, hyperlipidemia, or diabetes. Currently smokes 4 cigarettes daily, decreased from 1 pack/day. No alcohol or recreational drug use. Single. Works for [employer] Family history Mother CABG age 48. Reports father had "stress heart attack" age 26. - Diagnosis (1) Epigastric abdominal pain (2) Tobacco use (3) GERD (gastroesophageal reflux disease) (4) Hypokalemia Review of Systems All other systems reviewed negative except as [facility] - History History Provided By: Patient - Medical History Medical History: Medical History (Last Updated 05/13/18 @ 14:30 by BLAKE Lopez) Asthma GERD (gastroesophageal reflux disease) - Surgical History Surgical History: Surgical History (Last Reviewed 05/13/18 @ 14:30 by BLAKE Lopez) History of appendectomy History of hip surgery - Family History Family History: Family History (Last Updated 05/13/18 @ 14:37 by BLAKE Lopez) Mother Hx of CABG CAD (coronary artery disease) Grandparent CVA (cerebral vascular accident) - Social History I have reviewed the patient's Social History: Yes - Tobacco History Second Hand Smoke Exposure: Yes Tobacco Use In Past 30 Days: Yes Smoking Status: Current every day smoker (4 cigarettes/daily) Tobacco Type: Cigarettes - Alcohol History How Often Do You Have a Drink Containing Alcohol: Never - Substance Use History Substance History: No History of Abuse - Travel History History of Recent Travel: No Recent Travel in the [place] Within the Last 8 Weeks: No Recent Travel Out of the Country Within the Last 8 Weeks: No - Immunization History Tetanus Immunization: <5 Years Medications and Allergies Active Medications: Active Medications Sodium Chloride (Ns Flush) 2 ml IV.FLUSH BID VINCE Last Admin: 05/13/18 08:34 Dose: 2 ml Sodium Chloride (Ns Flush) 2 ml IV.FLUSH PRN PRN PRN Reason: FLUSH AFTER USING IV ACCESS Allergies Allergy/AdvReac Type Severity Reaction Status Date / Time acetaminophen Allergy Severe HIVES WITH Verified 05/13/18 06:38 N&V codeine Allergy Severe HIVES, N/V Verified 05/13/18 06:38 penicillin G Allergy Severe ANAPHALAXIS Verified 05/13/18 06:38 propoxyphene Allergy Severe HIVES WITH Verified 05/13/18 06:38 N&V Home Medications Medication Instructions Recorded Confirmed Type albuterol sulfate 2 puff INHALATION Q4-6H PRN 05/13/18 05/13/18 History Exam Vital signs: Vital Signs 05/13/18 04:15 05/13/18 04:35 05/13/18 08:00 Temperature 98.0 F Pulse Rate 79 70 50 L Respiratory Rate 20 21 16 Blood Pressure 199/102 H 185/99 H 124/60 Pulse Oximetry 98 97 98 05/13/18 08:52 Temperature Pulse Rate Respiratory Rate 16 Blood Pressure Pulse Oximetry Intake & Output 05/12/18 05/13/18 05/13/18 18:59 06:59 18:59 Weight 77.111 kg Narrative: GENERAL: Alert WN, WD, NAD, pleasant, overweight, male who appears older than stated age HEAD: NC, AT EYES: Sclera clear, conjunctiva without injection NECK: Supple, no masses, trachea midline CV: RRR, without murmur, rub, gallop, no JVD, S1-S2 no S3-S4. No carotid bruits. Chest wall nontender to palpation. RESP: Scattered rhonchi bilateral, no crackles or wheeze, symmetrical chest rise , nonlabored, able to speak in full sentences ABD: Soft, tender epigastric area with light palpation, no rebound tenderness, negative Frank's, ND, no masses, positive bowel tones EXT: Pulses +2x4, no dependent edema MS: Normal tone x4 extremities, nontender, no obvious deformities, full range of motion NEURO: CN II through CN XII grossly intact, motor strength 5/5 PSYCH: A+O x3, pleasant affect, appropriate speech, mood, insight and judgment SKIN: Normal turgor, normal texture, no lesions, no rashes, brisk cap refill, even hair distribution Results 05/13/18 05:03 05/13/18 05:03 Cardiac Enzymes 05/13/18 05/13/18 Range/Units 05:03 08:30 AST 18 (15-37) U/L Troponin I Less than 0.02 L Less than 0.02 L (0.02-0.05) ng/mL CBC 05/13/18 Range/Units 05:03 WBC 7.7 (4.0-11.0) th/mm3 RBC 4.58 (4.50-5.90) mil/mm3 Hgb 13.1 (13.0-17.0) gm/dL Hct 39.0 (39.0-51.0) % Plt Count 186 (150-450) th/mm3 Neut # (Auto) 5.1 (1.8-7.7) th/mm3 Lymph # (Auto) 1.3 (1.0-4.8) th/mm3 [place] # (Auto) 1.1 H (0.0-0.9) th/mm3 Eos # (Auto) 0.2 (0.0-0.4) th/mm3 Baso # (Auto) 0.1 (0.0-0.2) th/mm3 Comprehensive Metabolic Panel 05/13/18 Range/Units 05:03 Sodium 140 (136-145) meq/L Potassium 3.2 L (3.5-5.1) meq/L Chloride 106 (98-107) meq/L Carbon Dioxide 26.0 (21.0-32.0) meq/L BUN 13 (7-18) mg/dL Creatinine 0.96 (0.60-1.30) mg/dL Calcium 8.1 L (8.5-10.1) mg/dL AST 18 (15-37) U/L ALT 20 (12-78) U/L Alkaline Phosphatase 71 (45-117) U/L Total Protein 7.3 (6.4-8.2) g/dL Albumin 3.1 L (3.4-5.0) g/dL Intake and Output 05/12/18 05/13/18 05/13/18 22:59 06:59 14:59 Other: Weight 77.111 kg - Imaging and Cardiology Imaging: Impressions Abdomen/Pelvis CT 05/13/18 05:03 CONCLUSION: 1. Stable exam of the abdomen and pelvis. No evidence of free fluid mass or bowel obstruction. 2. Chronic changes at the T10-11 disc space level. No etiology for right-sided abdominal pain identified. Right renal cyst is stable. EKG interpretations - EKG EKG results cardiology: normal axis, normal QRS, normal ST/T - Dysrhythmias Sinus rhythms and dysrhythmias: sinus bradycardia (< 50 bpm) Caprini VTE Risk Assessment Caprini VTE Risk Assessment: No/Low Risk (score <= 1) Caprini Risk Assessment Model: Point Value = 1 Point Value = 2 Point Value = 3 Point Value = 5 Age 41-60 Minor surgery BMI > 25 kg/m2 Swollen legs Varicose veins or History of unexplained or recurrent spontaneous Oral contraceptives or hormone replacement Sepsis (< 1 month) Serious lung disease, including pneumonia (< 1 month) Abnormal pulmonary function Acute myocardial infarction Congestive heart failure (< 1 month) History of inflammatory bowel disease Medical patient at bed rest Age 61-74 Arthroscopic surgery Major open surgery (> 45 min) Laparoscopic surgery (> 45 min) Malignancy Confined to bed (> 72 hours) Immobilizing plaster cast Central venous access Age >= 75 History of VTE Family history of VTE Factor V Leiden Prothrombin [id number] Lupus anticoagulant Anticardiolipin antibodies Elevated serum homocysteine Heparin-induced thrombocytopenia Other congenital or acquired thrombophilia Stroke (< 1 month) Elective arthroplasty Hip, pelvis, or leg fracture Acute spinal cord injury (< 1 month) Prophylaxis Regimen: Total Risk Factor Score Risk Level Prophylaxis Regimen 0-1 Low Early ambulation 2 Moderate Order ONE of the following: *Sequential Compression Device (SCD) *Heparin 5000 units SQ BID 3-4 Higher Order ONE of the following medications: *Heparin 5000 units SQ TID *Enoxaparin/Lovenox 40 mg SQ daily (WT < 150 kg, CrCl > 30 mL/min) *Enoxaparin/Lovenox 30 mg SQ daily (WT < 150 kg, CrCl > 10-29 mL/min) *Enoxaparin/Lovenox 30 mg SQ BID (WT < 150 kg, CrCl > 30 mL/min) AND/OR *Sequential Compression Device (SCD) 5 or more Highest Order ONE of the following medications: *Heparin 5000 units SQ TID (Preferred with Epidurals) *Enoxaparin/Lovenox 40 mg SQ daily (WT < 150 kg, CrCl > 30 mL/min) *Enoxaparin/Lovenox 30 mg SQ daily (WT < 150 kg, CrCl > 10-29 mL/min) *Enoxaparin/Lovenox 30 mg SQ BID (WT < 150 kg, CrCl > 30 mL/min) AND *Sequential Compression Device (SCD) Assessment and Plan - Assessment (1) Epigastric abdominal pain Code(s): R10.13 - Epigastric pain Status: Acute Plan: Mid to chest pain center. Continue ruling out ACS with 3 sets of EKGs and cardiac enzymes. Will be seen and evaluated by Dr. Rodney Head. Discomfort appears to be GI related, possible gastric ulcer. Discomfort does not suggest cardiac in etiology, nor is an angina equivalent. Patient and mother express both being highly concerned discomfort may be cardiac. Patient certainly has risk factors would be unable to walk on treadmill due to current discomfort. Likely will proceed with Lexiscan after being ruled out and seen by ticket machine operator. GI consult likely to follow. Abdomen/pelvis CT reviewed, afebrile , and without acute laboratory findings. (2) Tobacco use Code(s): Z72.0 - Tobacco use Status: Chronic Plan: Strongly encouraged and stressed importance of tobacco cessation. Instructed to quit smoking. (3) GERD (gastroesophageal reflux disease) Code(s): K21.9 - Gastro-esophageal reflux disease without esophagitis Status: Acute Plan: Protonix given in ER. Pepcid 20 mg IV x1 dose now. Consider GI cocktail and GI consult after Dr. Head assesses patient. (4) Hypokalemia Code(s): E87.6 - Hypokalemia Status: Acute Plan: Potassium 40 mEq given in ER. (3) GERD (gastroesophageal reflux disease) Qualifiers: Esophagitis presence: esophagitis presence not specified Qualified Code(s): K21.9 - Gastro-esophageal reflux disease without esophagitis
[2018-05-13] MEDS ORDERED: Morphine Sulfate Inj 2 MG/ML Vial IV.PUSH ONE (09:32)
[2018-05-13] MEDS ORDERED: Famotidine PF Inj 20 MG/2 ML Vial IV.PUSH ONE (12:46)
[2018-05-13 12:53] LABS: Creatine Kinase 64 U/L (39-308)
[2018-05-13] MEDS ORDERED: Aluminum/Magnesium/Simethacone Susp 30 ML UDC PO ONE (12:54)
[2018-05-13 13:37] LABS: Bilirubin,Urine Negative (Negative); Clarity,Urine Clear (Clear); Color,Urine Yellow (Yellw/Straw); Glucose,Urine (UA) Negative (Negative); Leukocyte Esterase,Urine Negative (Negative); Mucus,Urine Few /lpf (Occasional); Nitrite,Urine Negative (Negative); Specific Gravity,Urine 1.018 (1.002-1.035)
[2018-05-13] MEDS ORDERED: RESP: Albuterol Concentrated 2.5 MG/0.5 ML Neb NEB ONE (14:00)
[2018-05-13] MEDS ORDERED: Regadenoson Inj 0.4 MG/5 ML Syringe IV.PUSH ONE (14:22)
--- NOTE | 2018-05-13 15:22 | P.CONGI ---
History of Present Illness Consult date: 05/13/18 Consult reason: Gastric pain Chief complaint: Chest pain, rule out ACS History of Present Illness: This patient is a 48-year-old male with history of gastro-esophageal reflux disease and COPD. Patient presented to the emergency room at [facility] on 05/13/2018 with report of epigastric pain onset last evening. Patient describes pain as sharp and stabbing and states that it is intermittent radiating to his left anterior chest. Patient rates pain as 8 out of 10 and reports that it is worse with inspiration. There are no alleviating factors per patient. Patient denies nausea or vomiting. Patient states he takes Tums for relief of GERD symptoms as needed. Patient states he used to take a proton pump inhibitor in the past but does not have a primary care physician at this time. Of note, patient does endorse taking Motrin 2 tablets p.o. 3-4 times a week for generalized joint pain and aching. Patient denies any change in bowel habits or appetite. Patient denies any unintentional weight loss. Denies any hematemesis or any noted bleeding. Patient denies any use of alcohol or recreational drugs. He does endorse smoking 4 cigarettes daily. Family history significant for AK, his mother underwent CABG at age 48 and he reports his father had a "stress heart attack". Patient denies ever having had an EGD in the past. States he had a colonoscopy done many years ago with unremarkable findings per his recollection. Review of Systems All other systems reviewed negative except as stated in HPI PMFSH - History History Provided By: Patient - Medical History Medical History: Medical History (Last Updated 05/13/18 @ 14:30 by BLAKE Lopez) Asthma GERD (gastroesophageal reflux disease) - Surgical History Surgical History: Surgical History (Last Reviewed 05/13/18 @ 14:30 by BLAKE Lopez) History of appendectomy History of hip surgery - Family History Family History: Family History (Last Updated 05/13/18 @ 14:37 by BLAKE Lopez) Mother Hx of CABG CAD (coronary artery disease) Grandparent CVA (cerebral vascular accident) - Tobacco History Second Hand Smoke Exposure: Yes Tobacco Use In Past 30 Days: Yes Smoking Status: Current every day smoker (4 cigarettes/daily) Tobacco Type: Cigarettes - Alcohol History How Often Do You Have a Drink Containing Alcohol: Never - Substance Use History Substance History: No History of Abuse - Travel History History of Recent Travel: No Recent Travel in the [place] Within the Last 8 Weeks: No Recent Travel Out of the Country Within the Last 8 Weeks: No - Immunization History Tetanus Immunization: <5 Years Medications and Allergies Active Medications: Active Medications Sodium Chloride (Ns Flush) 2 ml IV.FLUSH BID VINCE Last Admin: 05/13/18 08:34 Dose: 2 ml Sodium Chloride (Ns Flush) 2 ml IV.FLUSH PRN PRN PRN Reason: FLUSH AFTER USING IV ACCESS Allergies Allergy/AdvReac Type Severity Reaction Status Date / Time acetaminophen Allergy Severe HIVES WITH Verified 05/13/18 06:38 N&V codeine Allergy Severe HIVES, N/V Verified 05/13/18 06:38 penicillin G Allergy Severe ANAPHALAXIS Verified 05/13/18 06:38 propoxyphene Allergy Severe HIVES WITH Verified 05/13/18 06:38 N&V Home Medications Medication Instructions Recorded Confirmed Type albuterol sulfate 2 puff INHALATION Q4-6H PRN 05/13/18 05/13/18 History Exam Vital signs: Vital Signs 05/13/18 04:15 05/13/18 04:35 05/13/18 08:00 Temperature 98.0 F Pulse Rate 79 70 50 L Respiratory Rate 20 21 16 Blood Pressure 199/102 H 185/99 H 124/60 Pulse Oximetry 98 97 98 05/13/18 08:52 05/13/18 10:07 05/13/18 11:48 Temperature 97.8 F 98.7 F Pulse Rate 57 L 51 L Respiratory Rate 16 18 16 Blood Pressure 156/101 H 149/87 H Pulse Oximetry 98 97 05/13/18 13:23 Temperature Pulse Rate 51 L Respiratory Rate 18 Blood Pressure Pulse Oximetry Intake & Output 05/12/18 05/13/18 05/13/18 18:59 06:59 18:59 Weight 77.111 kg 77.111 kg Other: Weight On Admission 77.111 kg - Constitutional no acute distress - Routine HEENT Exam Head: Present: normocephalic - Routine Neck Exam Present: supple - Routine Respiratory Exam Present: CTA bilaterally. Absent: accessory muscle use - Routine Abdominal Exam Present: soft, normoactive bowel sounds, tenderness. Absent: distended, guarding, firm Comments: Epigastric tenderness on palpation during exam - Routine Skin Exam Present: dry, warm - Routine Neurological Exam Present: alert, oriented X3 Results - Labs CBC & Chem 7: 05/13/18 05:03 05/13/18 05:03 Labs: Laboratory Results - last 24 hr 05/13/18 05/13/18 05/13/18 05:03 05:03 08:30 WBC 7.7 RBC 4.58 Hgb 13.1 Hct 39.0 MCV 85.1 MCH 28.5 MCHC 33.5 RDW 13.3 Plt Count 186 MPV 10.9 Neut % (Auto) 65.5 Lymph % (Auto) 16.8 [place] % (Auto) 14.1 H Eos % (Auto) 2.6 Baso % (Auto) 1.0 Neut # (Auto) 5.1 Lymph # (Auto) 1.3 [place] # (Auto) 1.1 H Eos # (Auto) 0.2 Baso # (Auto) 0.1 WBC Differential . Differential Comment Auto diff final Sodium 140 Potassium 3.2 L Chloride 106 Carbon Dioxide 26.0 Anion Gap 8 BUN 13 Creatinine 0.96 Estimated GFR 83 L Random Glucose 140 H Calcium 8.1 L Magnesium 1.9 Total Bilirubin 0.3 AST 18 ALT 20 Alkaline Phosphatase 71 Total Creatine Kinase 97 Troponin I Less than 0.02 L Less than 0.02 L Total Protein 7.3 Albumin 3.1 L Lipase 45 L Urine Color Urine Clarity Urine pH Ur Specific [place] Urine Protein Urine Glucose (UA) Urine Ketones Urine Occult Blood Urine Nitrate Urine Bilirubin Urine Urobilinogen Ur Leukocyte Esterase Urine RBC Urine WBC Urine Mucus Micro UA Comment Ur Microscopic Review Urine Culture Comments 05/13/18 05/13/18 12:00 13:15 WBC RBC Hgb Hct MCV MCH MCHC RDW Plt Count MPV Neut % (Auto) Lymph % (Auto) [place] % (Auto) Eos % (Auto) Baso % (Auto) Neut # (Auto) Lymph # (Auto) [place] # (Auto) Eos # (Auto) Baso # (Auto) WBC Differential Differential Comment Sodium Potassium Chloride Carbon Dioxide Anion Gap BUN Creatinine Estimated GFR Random Glucose Calcium Magnesium Total Bilirubin AST ALT Alkaline Phosphatase Total Creatine Kinase 64 Troponin I Less than 0.02 L Total Protein Albumin Lipase Urine Color Yellow Urine Clarity Clear Urine pH 6.0 Ur Specific [place] 1.018 Urine Protein Negative Urine Glucose (UA) Negative Urine Ketones Negative Urine Occult Blood Negative Urine Nitrate Negative Urine Bilirubin Negative Urine Urobilinogen Less than 2 Ur Leukocyte Esterase Negative Urine RBC Less than 1 Urine WBC Less than 1 Urine Mucus Few H Micro UA Comment Culture not ind Ur Microscopic Review Not Reportable Urine Culture Comments Culture not ind - Imaging Impressions Abdomen/Pelvis CT 05/13/18 05:03 CONCLUSION: 1. Stable exam of the abdomen and pelvis. No evidence of free fluid mass or bowel obstruction. 2. Chronic changes at the T10-11 disc space level. No etiology for right-sided abdominal pain identified. Right renal cyst is stable. Assessment and Plan (1) Epigastric abdominal pain Status: Acute Code(s): R10.13 - Epigastric pain - Plan This patient is a 48-year-old male with history of gastro-esophageal reflux disease and COPD. Patient presented to the emergency room at [facility] on 05/13/2018 with report of epigastric pain onset last evening. Patient describes pain as sharp and stabbing and states that it is intermittent radiating to his left anterior chest. Patient rates pain as 8 out of 10 and reports that it is worse with inspiration. There are no alleviating factors per patient. Patient denies nausea or vomiting. Patient states he takes Tums for relief of GERD symptoms as needed. Patient states he used to take a proton pump inhibitor in the past but does not have a primary care physician at this time. Of note, patient does endorse taking Motrin 2 tablets p.o. 3-4 times a week for generalized joint pain and aching. Patient denies the use of any aspirin or blood thinners. Patient denies any change in bowel habits or appetite. Patient denies any unintentional weight loss. Denies any hematemesis or any noted bleeding. Patient denies any use of alcohol or recreational drugs. He does endorse smoking 4 cigarettes daily. Family history significant for AK, his mother underwent CABG at age 48 and he reports his father had a "stress heart attack". Patient denies ever having had an EGD in the past. States he had a colonoscopy done many years ago with unremarkable findings per his recollection. Epigastric pain History of gastric reflux disease. Onset of pain last evening, patient takes Tums as needed for GERD symptoms. Of note, patient does endorse taking Motrin 2 tablets p.o. 3-4 times weekly for generalized joint pain and aching. Hemoglobin 13.1 hematocrit 39.0 platelet count 186 INR 1.0 Troponin less than 0.02 Cardiac clearance in progress 05/13/18 (1700)-notified that patient has been cleared from cardiology standpoint - BLAKE Lopez Cardiology Plan -N.p.o. after midnight -Obtain consent for EGD -Pantoprazole 40 mg IV daily -Monitor for bleeding -Supportive care -Avoid NSAIDs, aspirin or blood thinners -Antireflux regimen -Further recommendations to follow This patient has been seen by myself and Dr. Interiano and this note is written on his behalf - Attending Attestation Dr. Interiano
--- NOTE | 2018-05-13 15:35 | NM ---
EXAM DATE: 05/13/2018 3:21 PM EST AGE/SEX: 48 years / Male INDICATIONS:Angina. . CLINICAL DATA: This is the patient's initial encounter. Patient reports that signs and symptoms have been present for 1 day and indicates a pain score of 3/10. MEDICAL/SURGICAL HISTORY: Asthma. Appendectomy. Hip surgery. COMPARISON: [facility] – [place], FOREARM LEFT (2VWS), 02/15/2017. . DOSE: 8.2 mCi Tc 99m Myoview at rest 26.5 mCi [id number] at stress 0.4 mg Lexiscan STRESS SYMPTOMS: None. EJECTION FRACTION: 60 % TECHNIQUE: The patient underwent pharmacologic stress with infusion of prescribed dose. Continuous ECG tracing was monitored during stress. Gated SPECT imaging was performed after stress and conventi onal SPECT imaging was performed at rest. The examination was performed on a SPECT/CT scanner, both attenuation and non-corrected datasets were reviewed. FINDINGS: Distribution: The maximum perfused segment at stress is in the anterior wall. Perfusion Study: The pattern of perfusion at stress is within normal limits. Gated Study: There are intact wall motion and wall thickening without hypokinetic or dyskinetic segm ents. The ejection fraction is calculated at 60%. RISK CATEGORY: Low (<1% Annual Motality Rate) CONCLUSION: 1. Negative examination. Electronically signed by: Karan Henao MD 05/13/2018 3:34 PM EST
--- NOTE | 2018-05-13 15:51 | ECG ---
Date Performed: 05/13/2018 Time Performed: 05:03:57 PTAGE: 48 years EKG: Sinus rhythm NORMAL ECG PREVIOUS TRACING : 06/10/2016 05.04 Since the previous tracing, no significant change noted DOCTOR: Rodney Head Interpretating Date/Time 05/13/2018 15:50:37
--- NOTE | 2018-05-13 15:51 | ECG ---
Date Performed: 05/13/2018 Time Performed: 08:39:35 PTAGE: 48 years EKG: SINUS BRADYCARDIA WITH SINUS ARRHYTHMIA BORDERLINE ECG PREVIOUS TRACING : 05/13/2018 05.03 Compared to previous tracing, heart rate is slower, Otherwi se no significant serial change DOCTOR: Rodney Head Interpretating Date/Time 05/13/2018 15:50:59
[2018-05-13] MEDS ORDERED: Morphine Inj 4 MG/ML Vial IV.PUSH ONE (15:58)
[2018-05-13] MEDS ORDERED: Pantoprazole Inj 40 MG Vial IV.PUSH SCH (16:00)
[2018-05-13] MEDS ORDERED: Chlorhexidine Gluconate 2% 1 Pack (2 Cloths) TOPICAL ONE (16:43)
[2018-05-13] MEDS ORDERED: Sodium Chlor 0.9% Inj 500 ML IV.SIG SCH (17:00)
[2018-05-13] MEDS: Morphine Sulfate Inj 2 MG/ML Vial IV.PUSH PRN (22:12)
--- NOTE | 2018-05-14 05:31 | P.PN ---
Subjective Interval history: F/u epig pain. Tolerated EGD. Results discussed with patient with gastritis and esophagitis status post biopsy. Discussed with GI, start diet if tolerated can be discharged home with outpatient follow-up to discuss results of biopsy. Antireflux mechanisms discussed with patient. Avoid NSAIDs and aspirin. Tobacco cessation. Physical Exam Vital signs: Vital Signs 05/13/18 08:00 05/13/18 08:52 05/13/18 10:07 Temperature 97.8 F Pulse Rate 50 L 57 L Respiratory Rate 16 18 Blood Pressure 124/60 156/101 H Pulse Oximetry 98 98 05/13/18 11:48 05/13/18 13:23 05/13/18 16:00 Temperature 98.7 F 98.1 F Pulse Rate 51 L 51 L 58 L Respiratory Rate 16 18 16 Blood Pressure 149/87 H 133/71 Pulse Oximetry 97 99 05/13/18 20:00 05/13/18 23:12 05/14/18 00:00 Temperature 98.4 F 98.1 F Pulse Rate 60 60 67 Respiratory Rate 19 19 Blood Pressure 127/60 123/56 L Pulse Oximetry 96 96 05/14/18 03:25 05/14/18 04:00 Temperature 98.3 F Pulse Rate 60 53 L Respiratory Rate 20 Blood Pressure 149/86 H Pulse Oximetry 95 Intake & Output 05/13/18 05/13/18 05/14/18 06:59 18:59 06:59 Weight 77.111 kg 77.111 kg Other: # Voids 3 Weight On Admission 77.111 kg Narrative: GENERAL: Alert WN, WD, NAD, pleasant, overweight, male who appears older than stated age CV: RRR, without murmur, rub, gallop, no JVD, S1-S2 no S3-S4. No carotid bruits. Chest wall nontender to palpation. RESP: Decreased breath sounds clear lungs ABD: Soft, tender epigastric area with light palpation, no rebound tenderness, negative Frank's, ND, no masses, positive bowel tones EXT: Pulses +2x4, no dependent edema MS: Normal tone x4 extremities, nontender, no obvious deformities, full range of motion NEURO: CN II through CN XII grossly intact, motor strength 5/5 PSYCH: A+O x3, pleasant affect, appropriate speech, mood, insight and judgment SKIN: Normal turgor, normal texture, no lesions, no rashes Results - Labs CBC & Chem 7: 05/13/18 05:03 05/13/18 05:03 Laboratory Results - last 24 hr 05/13/18 05/13/18 05/13/18 05:03 08:30 12:00 Sodium 140 Potassium 3.2 L Chloride 106 Carbon Dioxide 26.0 Anion Gap 8 BUN 13 Creatinine 0.96 Estimated GFR 83 L Random Glucose 140 H Calcium 8.1 L Magnesium 1.9 Total Bilirubin 0.3 AST 18 ALT 20 Alkaline Phosphatase 71 Total Creatine Kinase 97 64 Troponin I Less than 0.02 L Less than 0.02 L Less than 0.02 L Total Protein 7.3 Albumin 3.1 L Lipase 45 L Urine Color Urine Clarity Urine pH Ur Specific [place] Urine Protein Urine Glucose (UA) Urine Ketones Urine Occult Blood Urine Nitrate Urine Bilirubin Urine Urobilinogen Ur Leukocyte Esterase Urine RBC Urine WBC Urine Mucus Micro UA Comment Ur Microscopic Review Urine Culture Comments 05/13/18 13:15 Sodium Potassium Chloride Carbon Dioxide Anion Gap BUN Creatinine Estimated GFR Random Glucose Calcium Magnesium Total Bilirubin AST ALT Alkaline Phosphatase Total Creatine Kinase Troponin I Total Protein Albumin Lipase Urine Color Yellow Urine Clarity Clear Urine pH 6.0 Ur Specific [place] 1.018 Urine Protein Negative Urine Glucose (UA) Negative Urine Ketones Negative Urine Occult Blood Negative Urine Nitrate Negative Urine Bilirubin Negative Urine Urobilinogen Less than 2 Ur Leukocyte Esterase Negative Urine RBC Less than 1 Urine WBC Less than 1 Urine Mucus Few H Micro UA Comment Culture not ind Ur Microscopic Review Not Reportable Urine Culture Comments Culture not ind - Imaging Impressions Myocardial Perfusion Scan Nuc Med 05/13/18 00:00 CONCLUSION: 1. Negative examination. Abdomen/Pelvis CT 05/13/18 05:03 CONCLUSION: 1. Stable exam of the abdomen and pelvis. No evidence of free fluid mass or bowel obstruction. 2. Chronic changes at the T10-11 disc space level. No etiology for right-sided abdominal pain identified. Right renal cyst is stable. - Procedures EGD Assessment and Plan - Plan (1) Epigastric abdominal pain Ruled out for IN. Neg Lexiscan and abdominal CT Hx GERD and Nsaid use , ct PPI Tolerated EGD. Results discussed with patient with gastritis and esophagitis status post biopsy. Discussed with GI, start diet if tolerated can be discharged home with outpatient follow-up to discuss results of biopsy. Antireflux mechanisms discussed with patient. Avoid NSAIDs and aspirin. Tobacco cessation. (2) Tobacco use hx Asthma Strongly encouraged and stressed importance of tobacco cessation. Instructed to quit smoking. MDI prn (3) Hypokalemia Potassium 40 mEq given in ER. DVT proph, OOB Discharge Planning: Discharge patient to home Condition on discharge: Improved Regular Diet as tolerated Ad Shonda activity no driving Rx written: PPI Follow-up with primary care physician and GI
[2018-05-14] MEDS: Morphine Sulfate Inj 2 MG/ML Vial IV.PUSH PRN ×2 (06:56→11:45)
[2018-05-14 08:23] VITALS: RESP 16
[2018-05-14] MEDS ORDERED: Sodium Chlor 0.9% Inj 500 ML IV.CONT ONE (09:30)
[2018-05-14] MEDS ORDERED: Chlorhexidine Gluconate 2% 1 Pack (2 Cloths) TOPICAL ONE (09:30)
[2018-05-14] MEDS ORDERED: Metoprolol Tartrate 25 MG Tablet PO ONE (09:30)
--- NOTE | 2018-05-14 10:30 | GIPROC ---
[facility] [address] [facility]. [facility], [id number] EGD PROCEDURE REPORT EXAM DATE: 05/14/2018 PATIENT NAME: Jordy Muse MR #: [id number] BIRTHDATE: 1970 ATTENDING: Eva Nuñez MD ORDER #: [id number] EXTERIOR DESIGNER: Chandan Rios Power, Victoria, and Abigail Doll STATUS: inpatient INDICATIONS: The patient is a 48 yr old male here for an EGD due to epigastric abdominal pain PROCEDURE PERFORMED: EGD w/ biopsy MEDICATIONS: Per Anesthesia and None. TOPICAL ANESTHETIC: none CONSENT: The patient understands the risks and benefits of the procedure and understands that these risks include, but are not limited to: sedation, allergic reaction, infection, perforation and/or bleeding. Alternative means of evaluation and treatment include, among others: physical exam, x-rays, and/or surgical intervention. The patient elects to proceed with this endoscopic procedure. medical equipment was checked for proper function. Hand hygiene and appropriate measures for infection prevention was taken. After the risks, benefits and alternatives of the procedure were thoroughly explained, Informed consent was verified, confirmed and timeout was successfully executed by the treatment team. The patient was anesthetized with topical anesthesia and the Pentax [id number] endoscope was introduced through the mouth and advanced to the third portion of the duodenum. Retroflexion was performed and was normal The gastroscope was then slowly withdrawn and removed. ESOPHAGUS: There was LA Class C esophagitis noted. Multiple biopsies were performed using cold forceps. Sample obtained to rule out Chase's esophagus. Sample sent for histology. STOMACH: There was moderate and ulcerative gastritis in the gastric antrum. Multiple biopsies were performed using cold forceps. Sample sent for histology. DUODENUM: The duodenal mucosa appeared normal in the duodenal bulb and 2nd part duodenum. ADVERSE EVENTS: There were no complications. IMPRESSIONS: 1. There was LA Class C esophagitis noted; multiple biopsies were performed to role out Chase's 2. There was gastritis in the gastric antrum; multiple biopsies were performed 3. Normal duodenal mucosa in the duodenal bulb and 2nd part duodenum 4. Retroflexion was performed and was normal RECOMMENDATIONS: 1. Await biopsy results. Biopsy results will not be ready for 7-10 days. If you don't hear from us in two weeks, call our office for biopsy results. 2. Continue PPI 3. Anti-reflux regimen PATIENT CONDITION: stable DISPOSITION: Observation REPEAT EXAM: NONE Eva Nuñez MD eSigned: Eva Nuñez MD 05/14/2018 10:30 AM cc: PATIENT NAME: Jordy Muse MR#: [id number]
[2018-05-14 12:10] VITALS: BP 133/85; PULSE 54; TEMP 97.9; O2SAT 97
[2018-05-14] MEDS ORDERED: Aluminum/Magnesium/Simethacone Susp 30 ML UDC PO PRN (14:02)
--- NOTE | 2018-05-14 16:54 | TR ---
Date Performed: 05/13/2018 Time Performed: 14:39:48 DOCTOR: Yue Maxwell DRUG LIST: CLINICAL HISTORY: REASON FOR TEST: REASON FOR ENDING: OBSERVATION: CONCLUSION: Lexiscan stress test was performed under standard four minute protocol. Radionuclid e was injected one minute prior to ending the test. No electrocardiographic abormalities were present to suggest ischemia. Nuclear imaging and interpretation are pending. COMMENTS: Lexiscan stress test was performed under standard four minute protocol. Radionuclide was injected one minute prior to ending the test. No electrocardiographic abormalities were present t o suggest ischemia. Nuclear imaging and interpretation are pending.
--- NOTE | 2018-05-14 22:38 | ECG ---
Date Performed: 05/13/2018 Time Performed: 11:45:38 PTAGE: 48 years EKG: SINUS BRADYCARDIA BORDERLINE ECG PREVIOUS TRACING : 05/13/2018 08.39 Since the previous tracing, no significant change noted DOCTOR: Dayne Garvin Interpretating Date/Time 05/14/2018 22:37:23
== END 2018-05-14 15:11 | disposition home or self-care (01) ==
LOC: NEPC 04:12 → NEDA 04:12 → NEPFCDU 09:06
PROVIDERS: ADMIT Internal Medicine; ATTEND Internal Medicine
PROC: PANENDO (2018-05-14 10:11)
DX: N28.1 Cyst of kidney, acquired; I20.9 Angina pectoris, unspecified; E87.6 Hypokalemia; K29.00 Acute gastritis without bleeding; F17.210 Nicotine dependence, cigarettes, uncomplicated; J44.9 Chronic obstructive pulmonary disease, unspecified; K21.0 Gastro-esophageal reflux disease with esophagitis